=== PATIENT | female | born 1985 | race Caucasian/White ===

== ENCOUNTER 2018-01-16 19:53 | Emergency (ER) | payer BC ==
[~2018-01-16] VITALS: Ht 177.8 cm; Wt 80.0 kg
[2018-01-16] MEDS ORDERED: DEPO-ESTRADIO5 MG/ML IM (20:06)
[2018-01-16] MEDS ORDERED: ROXICODONE 55 MG/TAB PO (20:06)
[2018-01-16 20:36] VITALS: BP 110/59
== END 2018-01-16 20:36 | disposition home or self-care (01) ==
LOC: ED 19:53
DX: S82.891E Other fracture of right lower leg, subsequent encounter for open fracture type I or II with routine healing (principal); V49.9XXD Car occupant (driver) (passenger) injured in unspecified traffic accident, subsequent encounter

== ENCOUNTER → 2018-05-06 | Outpatient (CLI) | payer MEDICAID ==
[~2018-05-06] MED LIST: DEPO-ESTRADIO5 MG/ML IM; ROXICODONE 55 MG/TAB PO
== END ==
LOC: MAMMO 09:38
DX: Z12.31 Encounter for screening mammogram for malignant neoplasm of breast (principal); Z80.3 Family history of malignant neoplasm of breast

== ENCOUNTER → 2019-09-05 | Outpatient (CLI) | payer MEDICAID ==
[2019-09-05 14:47] LABS: EOS % 0.4 % (1.0-5.0); HEMATOCRIT 41.7 % (37.0-47.0); HEMOGLOBIN 13.7 g/dL (12.5-16.0); LYMPH# 1.4 (1.50-4.00); MEAN CELL VOLUME 91 fl (78-100); MEAN CORPUSCULAR HEMOGLOBIN 30 pg (27-31); MEAN CORPUSCULAR HGB CONC 33 g/dL (33-37); MEAN PLATELET VOLUME 10.5 fl (7.4-10.4); MONO # 0.5 (0.20-0.80); NEU # 5.9 (1.40-6.50); PLATELET COUNT 264 K/mm3 (130-400); RED BLOOD COUNT 4.56 M/mm3 (4.10-5.30); RED CELL DISTRIBUTION WIDTH 12.6 % (11.5-14.5); WHITE BLOOD COUNT 7.9 K/mm3 (4.8-10.8)
[2019-09-05 14:56] LABS: ALBUMIN 4.7 g/dL (3.5-5.0); POTASSIUM 3.5 mmol/L (3.5-5.1)
[2019-09-05 14:57] LABS: CALCIUM 10.6 mg/dL (8.3-10.5)
[2019-09-05 14:58] LABS: TOTAL PROTEIN 7.9 g/dL (6.4-8.3)
[2019-09-05 15:00] LABS: TOTAL BILIRUBIN 0.2 mg/dL (0.2-1.2)
== END ==
LOC: LAB 14:29
PROVIDERS: Family Medicine
DX: Z00.00 Encounter for general adult medical examination without abnormal findings (principal); Z47.1 Aftercare following joint replacement surgery; M19.071 Primary osteoarthritis, right ankle and foot; E78.5 Hyperlipidemia, unspecified

== ENCOUNTER → 2020-09-03 | Outpatient (CLI) | payer MEDICAID | LOC: LAB 17:07 | DX: J02.9 Acute pharyngitis, unspecified (principal) ==

== ENCOUNTER → 2021-04-29 | Outpatient (CLI) | payer MEDICAID ==
[2021-04-29 17:15] LABS: BASO # 0.04 (0.02-0.10); EOS % 2.7 % (1.0-5.0); HEMATOCRIT 38.3 % (37.0-47.0); HEMOGLOBIN 12.3 g/dL (12.5-16.0); LYMPH# 1.83 (1.50-4.00); MEAN CELL VOLUME 92 fl (78-100); MEAN CORPUSCULAR HEMOGLOBIN 30 pg (27-31); MEAN CORPUSCULAR HGB CONC 32 g/dL (33-37); MEAN PLATELET VOLUME 9.5 fl (7.4-10.4); MONO # 0.56 (0.20-0.80); NEU # 4.84 (1.40-6.50); PLATELET COUNT 288 K/mm3 (130-400); RED BLOOD COUNT 4.17 M/mm3 (4.10-5.30); RED CELL DISTRIBUTION WIDTH 12.1 % (11.5-14.5); WHITE BLOOD COUNT 7.5 K/mm3 (4.8-10.8)
[2021-04-29 17:25] LABS: ALBUMIN 3.9 g/dL (3.5-5.0); POTASSIUM 3.4 mmol/L (3.5-5.1)
[2021-04-29 17:26] LABS: CALCIUM 9.4 mg/dL (8.3-10.5)
[2021-04-29 17:28] LABS: TOTAL PROTEIN 7.2 g/dL (6.4-8.3)
[2021-04-29 17:30] LABS: TOTAL BILIRUBIN 0.2 mg/dL (0.2-1.2)
[2021-04-29 23:06] LABS: LUTENIZING HORMONE 1.6 mIU/mL (()); PROGESTERONE 0.1 ng/mL (())
== END ==
LOC: LAB 16:46
PROVIDERS: Family Medicine
DX: Z00.00 Encounter for general adult medical examination without abnormal findings (principal); F41.9 Anxiety disorder, unspecified; E78.5 Hyperlipidemia, unspecified; G89.29 Other chronic pain; M54.2 Cervicalgia; Z78.0 Asymptomatic menopausal state

== ENCOUNTER → 2021-05-07 | Outpatient (CLI) | payer MEDICAID | LOC: RAD 12:32 | DX: G89.29 Other chronic pain (principal); M54.2 Cervicalgia; M25.579 Pain in unspecified ankle and joints of unspecified foot ==

== ENCOUNTER → 2021-05-31 | Outpatient (CLI) | payer MEDICAID | LOC: MAMMO 09:15 | DX: Z12.31 Encounter for screening mammogram for malignant neoplasm of breast (principal); N63.21 Unspecified lump in the left breast, upper outer quadrant ==

== ENCOUNTER → 2021-06-06 | Outpatient (CLI) | payer MEDICAID | LOC: MAMMO 12:23 | DX: N63.20 Unspecified lump in the left breast, unspecified quadrant (principal) ==

== ENCOUNTER → 2022-07-04 | Outpatient (CLI) | payer MEDICAID ==
[2022-07-04 15:42] LABS: BASO # 0.07 K/mm3 (0.02-0.10); HEMATOCRIT 41.3 % (37.0-47.0); HEMOGLOBIN 13.7 g/dL (12.5-16.0); LYMPH# 2.32 K/mm3 (1.50-4.00); MEAN CELL VOLUME 90 fl (78-100); MEAN CORPUSCULAR HEMOGLOBIN 30 pg (27-31); MEAN CORPUSCULAR HGB CONC 33 g/dL (33-37); MEAN PLATELET VOLUME 9.7 fl (7.4-10.4); MONO # 0.86 K/mm3 (0.20-0.80); NEU # 6.92 K/mm3 (1.40-6.50); PLATELET COUNT 333 K/mm3 (130-400); RED BLOOD COUNT 4.61 M/mm3 (4.10-5.30); RED CELL DISTRIBUTION WIDTH 12.7 % (11.5-14.5); WHITE BLOOD COUNT 10.3 K/mm3 (4.8-10.8)
[2022-07-04 15:53] LABS: ALBUMIN 4.2 g/dL (3.5-5.0)
[2022-07-04 15:54] LABS: CALCIUM 9.7 mg/dL (8.3-10.5)
[2022-07-04 15:55] LABS: TOTAL PROTEIN 7.4 g/dL (6.4-8.3)
[2022-07-04 15:57] LABS: TOTAL BILIRUBIN 0.4 mg/dL (0.2-1.2)
[2022-07-04 16:29] LABS: POTASSIUM 2.8 mmol/L (3.5-5.1)
== END ==
LOC: LAB 15:34
PROVIDERS: Family Medicine
DX: Z00.00 Encounter for general adult medical examination without abnormal findings (principal); Z12.31 Encounter for screening mammogram for malignant neoplasm of breast; E78.5 Hyperlipidemia, unspecified; F41.9 Anxiety disorder, unspecified; M19.90 Unspecified osteoarthritis, unspecified site; F90.9 Attention-deficit hyperactivity disorder, unspecified type; F32.9 Major depressive disorder, single episode, unspecified; E66.3 Overweight; H90.5 Unspecified sensorineural hearing loss; I87.2 Venous insufficiency (chronic) (peripheral); Z72.0 Tobacco use; Z84.89 Family history of other specified conditions

== ENCOUNTER → 2022-07-07 | Outpatient (CLI) | payer MEDICAID | LOC: LAB 15:11 | DX: F19.90 Other psychoactive substance use, unspecified, uncomplicated (principal) ==

== ENCOUNTER → 2022-08-25 | Outpatient (CLI) | payer MEDICAID | LOC: MAMMO 07:42 | DX: Z12.31 Encounter for screening mammogram for malignant neoplasm of breast (principal) ==